=== PATIENT | male | born 1965 | race Caucasian/White ===

== ENCOUNTER 2019-02-11 12:07 | Emergency (ER) | payer MEDICAID ==
[~2019-02-11] VITALS: Ht 182.9 cm; Wt 109.8 kg
[2019-02-11 13:38] VITALS: BP 128/81
== END 2019-02-11 13:47 | disposition home or self-care (01) ==
LOC: ER 12:19
DX: S02.2XXA Fracture of nasal bones, initial encounter for closed fracture (principal); R04.0 Epistaxis; H26.9 Unspecified cataract; Z88.2 Allergy status to sulfonamides; W01.0XXA Fall on same level from slipping, tripping and stumbling without subsequent striking against object, initial encounter; Y93.89 Activity, other specified; Y92.89 Other specified places as the place of occurrence of the external cause; Y99.8 Other external cause status
CPT/HCPCS: 70160; 99283